=== PATIENT | female | born 1975 | race Caucasian/White ===

== ENCOUNTER 2020-07-14 14:47 | Emergency (ER) | payer OTHER, BC ==
[2020-07-14 16:39] LABS: HEMOGLOBIN 12.8 gm/dl (12.3-15.3); RED BLOOD COUNT 4.79 M/UL (4.00-5.10); WHITE BLOOD COUNT 13.6 K/UL (4.5-11.0)
[2020-07-14 16:59] LABS: BUN/CREATININE RATIO 18 (0-10)
[2020-07-14] MEDS ORDERED: CYCLOBENZAPRINE10 MG PO (18:00)
[2020-07-14] MEDS ORDERED: NAPROSYN500 MG PO (18:00)
== END 2020-07-14 18:06 | disposition home or self-care (01) ==
LOC: ER1 14:47
PROVIDERS: Physician Assistant
DX: S39.012A Strain of muscle, fascia and tendon of lower back, initial encounter (principal); S29.012A Strain of muscle and tendon of back wall of thorax, initial encounter; S30.1XXA Contusion of abdominal wall, initial encounter; S80.02XA Contusion of left knee, initial encounter; S40.021A Contusion of right upper arm, initial encounter; I10 Essential (primary) hypertension; V49.9XXA Car occupant (driver) (passenger) injured in unspecified traffic accident, initial encounter; Y92.410 Unspecified street and highway as the place of occurrence of the external cause
CPT/HCPCS: 71045; 72128; 72131; 73130; 73564; 80053; 85025; 99284; Q9967